=== PATIENT | male | born 1975 | race Two or more races ===

== ENCOUNTER 2019-08-20 19:31 | Emergency (ER) | payer OTHER ==
[2019-08-20 19:54] VITALS: BMI 24.9
[2019-08-20] MEDS ORDERED: SODIUM CHLORIDE 1,000 ML IV STA (19:57)
--- NOTE | 2019-08-20 20:01 | PDOC ---
Attending Attestation - Resident Resident Name: Carter Pineda - ED Attending Attestation I have performed the following: I have examined & evaluated the patient, The case was reviewed & discussed with the resident, I agree w/resident's findings & plan - HPI HPI: 08/21/19 00:26 see resident hpi - Physicial Exam PE: 08/21/19 00:26 see resident exam - Critical Care Time Total Critical Care Time: 90 Critical Care Statement: The care of this patient involved high complexity decision making to prevent further life threatening deterioration of the patient 's condition and/or to evaluate & treat vital organ system(s) failure or risk of failure. - Medical Decision Making 08/21/19 00:26 44-year-old male status post endoscopy earlier today now with hematemesis CT scan of the head secondary to mild trauma status post fall as well as of the chest abdomen and pelvis were negative for acute injury/acute pathology Case discussed with patient's dental hygiene teacher at [facility] as well as our on-call gastroenterology team Patient's family prefers to be transferred to [facility] as patient is now stable for transfer He has had no further vomiting Results discussed with patient's dental hygiene teacher who would like NG tube placement held as it would not present significant benefit at this time All discussions were conveyed to the family who agrees with the plan, patient accepted to [facility] for transfer due to patient request as well as continuity of care for gastroenterology consultation/admission
[2019-08-20 20:06] LABS: BASO % 0.2 % (0-2.0); EOS % 0.3 % (0-4.5); HEMOGLOBIN 12.7 GM/dL (11.7-16.9); LYMPH % 21.3 % (8-40); MCH 27.3 pg (25.7-33.7); MCHC 33.5 g/dl (32.0-35.9); MEAN CELL VOLUME 81.6 fl (80-96); MEAN PLT VOLUME 10.8 fl (7.5-11.1); MONO % 5.2 % (3.8-10.2); PLATELET COUNT 251 K/MM3 (134-434); RBC 4.65 M/mm3 (4.00-5.60); RDW 13.2 % (11.9-15.9); WHITE BLOOD COUNT 16.9 K/mm3 (4.0-10.0)
[2019-08-20] MEDS ORDERED: ONDANSETRON 4 MG/2 ML VIAL IVPUSH ONE (20:17)
--- NOTE | 2019-08-20 20:17 | PDOC ---
History of Present Illness - General Chief Complaint: Rectal Bleed Stated Complaint: GI BLEED Time Seen by Provider: 08/20/19 20:00 History Source: Patient Exam Limitations: No Limitations - History of Present Illness Initial Comments: 08/20/19 20:05 HPI: 44 yo pmh peptic ulcer, DM, presenting with hematemesis s/p upper endoscopy this morning. Patient underwent endoscopy this morning for early satiety and a peptic ulcer with biopsy collection at [facility] with Dr. Sherif Devries ( ) at 10:30AM. Procedure was uncomplicated and patient was discharged home. Ate a sandwich for lunch with no problem. Around 6:45 PM patient became nauseous, threw up bloody emesis "continuously for about 5 minutes." He then felt light headed / dizzy, syncopizing 2 times, with +head trauma one time hitting his face (small laceration over right eye). He had a BM that was loose and dark in color - no bright red color. He then called EMS. Initial vitals in the field were 110/70 with a HR 110. His pressure then dropped to 90/50 and HR increased to 130 with an additional 400cc hematemesis while arriving to the department. Endorses mild headache without visual changes - improving. Denies any abdominal pain, chest pain, SOB, cough. Not on any anticoagulants, no history of bleeding disorders. All: NKDA Meds: Metformin, Insulin PMH: PUD, DM PSH: Upper Endoscopy 08/11/2019 SHx: Denies toxic habits Past History - Past Medical History Allergies/Adverse Reactions: Allergies Allergy/AdvReac Type Severity Reaction Status Date / Time No Known Allergies Allergy Verified 08/20/19 19:54 Home Medications: Ambulatory Orders NK [No Known Home Medication] 08/20/19 - Psycho Social/Smoking Cessation Hx Smoking History: Unknown if ever smoked Hx Alcohol Use: No Drug/Substance Use Hx: No Review of Systems - Review of Systems Able to Perform ROS?: Yes Is the patient limited Tamazight proficient: Yes Constitutional: No: Chills, Fever, Weakness HEENTM: No: Recent change in vision, Nose Congestion, Throat Pain Respiratory: No: Cough, Shortness of Breath, Wheezing, Productive cough Cardiac (ROS): No: Chest Pain, Edema, Irregular Heart Rate, Lightheadedness, Palpitations, Syncope, Chest Tightness ABD/GI: Yes: Nausea, Rectal Bleeding, Vomiting, Tarry Stools. No: Blood Streaked Bowels, Constipated, Diarrhea, Poor Appetite, Poor Fluid Intake, Indigestion, Abdominal cramping : No: Burning, Dysuria, Frequency Musculoskeletal: No: Muscle Pain, Muscle Weakness Integumentary: Yes: Pallor. No: Bruising, Pruritus, Rash Neurological: Yes: Headache (mild, resolving). No: Numbness, Tingling, Weakness Psychiatric: No: Stressors, Change in Appetite Endocrine: No: Increased Thirst, Increased Urine, Change in Weight Hematologic/Lymphatic: No: Anemia, Blood Clots, Easy Bleeding All Other Systems: Reviewed and Negative *Physical Exam - Vital Signs Last Vital Signs Temp Pulse Resp BP Pulse Ox 93 H 20 122/87 100 08/20/19 19:33 08/20/19 19:33 08/20/19 19:33 08/20/19 19:33 - Physical Exam 08/20/19 22:09 Vitals reviewed, AFVSS on first repeat vitals - initially 90/50 130 on arrival GEN: Blood on face, clothes, hands, holding 400cc full emesis bag, pallor, appears stated age. HEENT: NCAT, EOMI, PERRL. Sclera anicteric, non-injected. No facial asymmetry. Moist mucous membranes. No blood in the oropharynx or nares. Dried blood around the mouth Normal voice. Trachea midline. CV: Tachycardic 90-100s, RRR, S1/S2, no murmurs / rubs / gallops appreciated. LUNG: CTAB, normal work of breathing. No wheezes, rales, rhonchi. No cough. Speaking full sentences. GI: Soft, Non-distended, Non-tender, +BS, no guarding, no rebound. No masses. Neg CVAT b/l. EXTREMITIES: 2+ distal pulses. No LE edema. No obvious deformities of all extremities. SKIN: Warm, dry, pale, no rashes appreciated, non-jaundiced. PSYCH: Normal mood and affect. Cooperative and appropriate. NEURO: CN grossly intact. Moving all extremities well. Normal strength and sensation grossly. A&Ox3. ED Treatment Course - LABORATORY CBC & Chemistry Diagram: 08/20/19 19:45 08/20/19 19:45 Medical Decision Making - Medical Decision Making 08/20/19 21:30 44 yo pmh peptic ulcer, DM, presenting with hematemesis s/p upper endoscopy this morning. History notable for no anticoagulation / bleeding disorders, recent instrumentation, no pain, bleeding 8 hours after procedure, no prior bleeds, no h/o ETOH/cirrhosis. Exam notable for intermittent tachycardia and relative hypotension, active hematemesis in the department on arrival, +pallor. Will discuss case with patient's GI and on-call GI. - CBC, CMP, T&Sx2, Coags - 2 18G IVs placed in bilateral ACs - EKG - Pantoprozole - Zofran - 1L IVF, NS - NCHCT - Chest, Abdo, Pelvis w/ contrast EKG with sinus tach, no ST changes, QTc 467 08/20/19 22:00 - Conversation with Dr. Devries on arrival - would like to accept the patient at [facility] pending stability for transfer. Happy to discuss with out steam distribution supervisor GI provider. - Conversation with Dr. Perla, he is aware patient is here, requests updates as they are available. - H&H within normal ranges (12.7 / 38.0) - INR 1.15 - WBC 16.9 - Cr 1.1 - Trop and Lipase wnl 08/20/19 22:33 - Patient without further emesis in the department - Pressure remains 100s SBP - Nausea, vomiting, pain, lightheadedness, dizziness 08/21/19 00:01 - Spoke with [facility] transfer center, will accept patient, determining level of care / attending - Awaiting callback from [facility] Dispo: Transfer to [facility] Dis[facility] - Discharge Information Problems reviewed: Yes Clinical Impression/Diagnosis: Hematemesis Qualifiers: Nausea presence: with nausea Qualified Code(s): K92.0 - Hematemesis Condition: Guarded - Follow up/Referral Referrals: ON STAFF,NOT [Primary Care Provider] - - Patient Discharge Instructions - Post Discharge Activity - Transfer to Acute Care Facility Receiving Facility Name: [facility] ( [facility] [address], [address] 1) Accepting Physician:: Dr. Huber
[2019-08-20] MEDS ORDERED: PANTOPRAZOLE SODIUM 40 MG VIAL IVPUSH ONE (20:18)
[2019-08-20 20:37] LABS: ALBUMIN 3.3 g/dl (3.4-5.0); BILIRUBIN,TOTAL 0.5 mg/dL (0.2-1); BLOOD UREA NITROGEN 32.4 mg/dL (7-18); CREATININE 1.1 mg/dL (0.55-1.3); POTASSIUM 4.5 mmol/L (3.5-5.1); TOT PROT 6.6 g/dl (6.4-8.2)
[2019-08-20] MEDS ORDERED: ONDANSETRON 4 MG/2 ML VIAL ONE (20:38)
[2019-08-20] MEDS ORDERED: PANTOPRAZOLE SODIUM 40 MG VIAL ONE (20:38)
[2019-08-20 21:01] LABS: INR 1.15 (0.83-1.09); PROTHROMBIN TIME (PATIENT) 13.6 SEC (9.7-13.0)
[2019-08-20 21:03] LABS: ACTIVATED PTT 29.8 SECONDS (25.2-36.5)
[2019-08-20 21:58] VITALS: TEMP 97.9
[2019-08-20] MEDS ORDERED: PANTOPRAZOLE SODIUM 80 MG in SODIUM CHLORIDE 100 ML IVPB SCH (22:00)
[2019-08-21 05:01] VITALS: BP 102/73; PULSE 96
--- NOTE | 2019-08-21 13:03 | EKG ---
Test Reason : Blood Pressure : / mmHG Vent. Rate : 099 BPM Atrial Rate : 099 BPM P-R Int : 144 ms QRS Dur : 082 ms QT Int : 364 ms P-R-T Axes : 053 048 054 degrees QTc Int : 467 ms NORMAL SINUS RHYTHM POSSIBLE LEFT ATRIAL ENLARGEMENT BORDERLINE ECG NO PREVIOUS ECGS AVAILABLE Confirmed by Roberto Carlos Benavidez MD ([id number]) on 08/21/2019 1:02:42 PM Referred By: Confirmed By:Roberto Carlos Benavidez MD
== END 2019-08-21 02:00 | disposition short-term general hospital (02) ==
LOC: JER 19:31 → SUPCPDRO 19:31 → JER 08-21 02:00
PROC: 3E033GC Introduction of Other Therapeutic Substance into Peripheral Vein, Percutaneous Approach (ICD-10-PCS; principal; 2019-08-20)
PROC: 3E0337Z Introduction of Electrolytic and Water Balance Substance into Peripheral Vein, Percutaneous Approach (ICD-10-PCS; 2019-08-20)
DX: K92.0 Hematemesis (principal); R00.0 Tachycardia, unspecified; S09.90XA Unspecified injury of head, initial encounter; S01.81XA Laceration without foreign body of other part of head, initial encounter; W18.39XA Other fall on same level, initial encounter; Y93.89 Activity, other specified; Y92.9 Unspecified place or not applicable; E11.9 Type 2 diabetes mellitus without complications; K27.9 Peptic ulcer, site unspecified, unspecified as acute or chronic, without hemorrhage or perforation; Z79.4 Long term (current) use of insulin; Z79.84 Long term (current) use of oral hypoglycemic drugs; Z98.890 Other specified postprocedural states
CPT/HCPCS: 36415; 70450-TC; 71045-TC-FY; 71260-TC; 74177-TC; 80053; 82550; 83690; 84484; 85025; 85610; 85730; 86850; 86900; 86901; 93005; 93010; 99285-25; J7030; Q9967

== ENCOUNTER 2021-09-13 18:48 | Emergency (ER) | payer OTHER ==
[2021-09-13 18:53] VITALS: BP 119/78; PULSE 80; TEMP 98; BMI 25.7
[2021-09-13] MEDS ORDERED: SODIUM CHLORIDE 0.9% 500 ML INFUS.BAG IV ONE (19:45)
[2021-09-13 20:14] LABS: BASO % 0.9 % (0-2.0); EOS % 1.4 % (0-4.5); HEMATOCRIT 46.4 % (35.4-49); HEMOGLOBIN 15.9 GM/dL (11.7-16.9); MCH 27.4 pg (25.7-33.7); MCHC 34.2 g/dl (32.0-35.9); MEAN CELL VOLUME 80.2 fl (80-96); MEAN PLT VOLUME 9.4 fl (7.5-11.1); MONO % 6.7 % (3.8-10.2); PLATELET COUNT 178 10^3/uL (134-434); RBC 5.78 M/mm3 (4.00-5.60); RDW 13.3 % (11.9-15.9); WHITE BLOOD COUNT 7.1 K/mm3 (4.0-10.0)
[2021-09-13 20:37] LABS: CALCIUM 10.3 mg/dL (8.5-10.1)
[2021-09-13 20:38] LABS: BLOOD UREA NITROGEN 14.7 mg/dL (7-18)
[2021-09-13 20:40] LABS: MAGNESIUM 2.2 mg/dL (1.8-2.4)
[2021-09-13 20:41] LABS: CREATININE 1.1 mg/dL (0.55-1.3)
[2021-09-13 20:43] LABS: BILIRUBIN,TOTAL 0.2 mg/dL (0.2-1); TOT PROT 7.8 g/dl (6.4-8.2)
== END 2021-09-13 21:25 | disposition home or self-care (01) ==
LOC: JER 18:48
DX: E11.65 Type 2 diabetes mellitus with hyperglycemia (principal)
CPT/HCPCS: 36415; 80053; 82962; 83735; 85025; 99284-25